=== PATIENT | male | born 1990 | race Caucasian/White ===

== ENCOUNTER 2019-12-29 17:55 | Emergency (ER) | payer OTHER ==
[2019-12-29 18:37] VITALS: BP 140/82; PULSE 110
== END 2019-12-29 19:45 | disposition left against medical advice (07) ==
LOC: MW.ED 17:55
DX: Z53.21 Procedure and treatment not carried out due to patient leaving prior to being seen by health care provider (principal)

== ENCOUNTER 2021-07-24 07:22 | Emergency (ER) | payer OTHER ==
[2021-07-24] MEDS ORDERED: Acetaminophen 500 MG Tab PO ONE (07:51)
[2021-07-24] MEDS ORDERED: Ibuprofen 600 MG Tab PO ONE (07:51)
[2021-07-24] MEDS ORDERED: Ondansetron 4 MG Tab.DIS PO ONE ×2 (07:51→09:34)
--- NOTE | 2021-07-24 07:58 | EDM.PDOC ---
ED HPI GENERAL MEDICAL PROBLEM - General Chief Complaint: Respiratory Problem Stated Complaint: COVID SYSTOMS Time Seen by Provider: 07/24/21 07:24 Source of Information: Reports: Patient History Limitations: Reports: No Limitations - History of Present Illness INITIAL COMMENTS - FREE TEXT/NARRATIVE: 30-year-old male no relevant past medical history presents for [id number] s ymptoms. Patient notes that for roughly the last week and a half he has noted nonproductive cough, chest tightness, shortness of breath, abdominal pain, nausea, vomiting, diarrhea, body aches, fever, loss of taste and smell. He denies sore throat. He notes that his vomiting got worse today and he has vomited roughly 6 times. He notes feeling very fatigued with a lack of energy. 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 He notes that he was around his [id number] just before the symptoms started and that she subsequently tested positive and is currently in quarantine. He notes that he lives with his elderly father with multiple health problems and that he has wanting to know if he is positive so that he may avoid passing along to his father. Abd/Body Aches Pain Score (Numeric/FACES): 8 - Related Data Allergies Allergy/AdvReac Type Severity Reaction Status Date / Time Latex, Natural Rubber Allergy Hives Verified 07/24/21 07:37 Penicillins Allergy Irritabilit Verified 12/29/19 18:33 y Home Meds: Home Meds Dextroamphetamine/Amphetamine [Adderall] 40 mg PO DAILY 12/29/19 [History] Medical Marijuana 1 dose INH ASDIRECTED 12/29/19 [History] Ondansetron [Zofran Odt] 8 mg PO Q6H PRN #12 tab.rapdis 07/24/21 [Rx] Past Medical History - Past Health History Medical/Surgical History: Denies Medical/Surgical History HEENT History: Reports: None Cardiovascular History: Reports: None Respiratory History: Reports: None Gastrointestinal History: Reports: Cholelithiasis Genitourinary History: Reports: None Musculoskeletal History: Reports: None Neurological History: Reports: None Psychiatric History: Reports: ADHD Endocrine/Metabolic History: Reports: None Hematologic History: Reports: None Immunologic History: Reports: None Oncologic (Cancer) History: Reports: None Dermatologic History: Reports: None - Infectious Disease History Infectious Disease History: Reports: None - Past Surgical History Head Surgeries/Procedures: Reports: None HEENT Surgical History: Reports: Oral Surgery GI Surgical History: Reports: Appendectomy, Cholecystectomy Social & Family History - Family History Family Medical History: No Pertinent Family History - Tobacco Use Tobacco Use Status *Q: Current Every Day Tobacco User Years of Tobacco use: 10 Packs/Tins Daily: 0.5 - Caffeine Use Caffeine Use: Reports: Soda - Recreational Drug Use Recreational Drug Use: Yes Drug Use in Last 12 Months: Yes Recreational Drug Type: Reports: Marijuana/Hashish Recreational Drug Use Frequency: Daily ED ROS GENERAL - Review of Systems Review Of Systems: Comprehensive ROS is negative, except as noted in HPI. ED EXAM, GENERAL - Physical Exam Exam: See Below Exam Limited By: No Limitations General Appearance: Alert, WD/WN, No Apparent Distress Ears: Hearing Grossly Normal Throat/Mouth: Normal Oropharynx, Normal Voice, No Airway Compromise Head: Atraumatic, Normocephalic Neck: Normal Inspection Respiratory/Chest: No Respiratory Distress, Lungs Clear, Normal Breath Sounds, No Accessory Muscle Use Cardiovascular: Normal Peripheral Pulses, Tachycardia GI/Abdominal: Soft, Non-Tender Extremities: Normal Inspection Neurological: Alert, Normal Cognition, Normal Gait Psychiatric: Normal Affect, Normal Mood Skin Exam: Warm, Dry, Intact, Normal Color Course - Vital Signs Last Recorded V/S: Last Vital Signs Temp 97.3 F 07/24/21 07:34 Pulse 96 07/24/21 07:34 Resp 16 07/24/21 07:34 BP 124/78 07/24/21 07:34 Pulse Ox 98 07/24/21 07:34 - Orders/Labs/Meds Labs: Laboratory Tests 07/24/21 Range/Units 07:54 SARS-CoV-2 RNA (SAMUEL) NEGATIVE (NEGATIVE) Meds: Medications Discontinued Medications Generic Name Dose Route Start Last Admin Trade Name Freq PRN Reason Stop Dose Admin Acetaminophen 1,000 mg 07/24/21 07:51 07/24/21 07:59 Acetaminophen 500 Mg Tab PO 07/24/21 07:52 1,000 mg ONETIME ONE Administration Ibuprofen 600 mg 07/24/21 07:51 07/24/21 07:59 Ibuprofen 600 Mg Tab PO 07/24/21 07:52 600 mg ONETIME ONE Administration Ondansetron HCl 4 mg 07/24/21 07:51 07/24/21 07:59 Ondansetron 4 Mg Tab.Dis PO 07/24/21 07:52 4 mg ONETIME ONE Administration Ondansetron HCl 4 mg 07/24/21 09:30 07/24/21 09:35 Ondansetron 4 Mg/2 Ml Sdv IVPUSH 07/24/21 09:31 Not Given ONETIME ONE Ondansetron HCl 4 mg 07/24/21 09:34 07/24/21 09:36 Ondansetron 4 Mg Tab.Dis PO 07/24/21 09:35 4 mg ONETIME ONE Administration Ondansetron HCl Confirm 07/24/21 09:35 07/24/21 09:38 Ondansetron 4 Mg Tab.Dis Administered 07/24/21 09:36 Not Given Dose 4 mg .ROUTE .[facility] ONE - Re-Assessments/Exams Free Text/Narrative Re-Assessment/Exam: 07/24/21 07:58 Patient is well-appearing with symptoms suggestive of COVID-19. Will get a chest x-ray to ensure no COVID-19 pneumonia. Will get a Covid swab. Will give Motrin, Tylenol, Zofran for symptomatic relief. 07/24/21 09:55 Covid testing and chest x-ray are unremarkable. Patient is feeling better. Will discharge with a course of Zofran. Will explained to patient that negative test does not necessarily 100% rule out COVID-19. Departure - Departure Time of Disposition: 09:55 Disposition: Home, Self-Care 01 Condition: Good Clinical Impression: Viral illness Nausea & vomiting Qualifiers: Vomiting type: unspecified Vomiting Intractability: non-intractable Qualified Code(s): R11.2 - Nausea with vomiting, unspecified - Discharge Information Instructions: Viral Illness, Adult, Nausea and Vomiting, Adult Referrals: PCP,None [Primary Care Provider] - Forms: ED Department Discharge Additional Instructions: Your Covid test was negative. However this does not completely rule out Covid as the test does not 100% sensitive. I did send a nausea medication to her pharmacy that can help with your symptoms. The following information is given to patients seen in the emergency department who are being discharged to home. This information is to outline your options for follow-up care. We provide all patients seen in our emergency department with a follow-up referral. The need for follow-up, as well as the timing and circumstances, are variable depending upon the specifics of your emergency department visit. If you don't have a primary care physician on staff, we will provide you with a referral. We always advise you to contact your personal physician following an emergency department visit to inform them of the circumstance of the visit and for follow-up with them and/or the need for any referrals to a consulting specialist. The emergency department will also refer you to a specialist when appropriate. This referral assures that you have the opportunity for follow-up care with a specialist. All of these measure are taken in an effort to provide you with optimal care, which includes your follow-up. Under all circumstances we always encourage you to contact your private physician who remains a resource for coordinating your care. When calling for follow-up care, please make the office aware that this follow-up is from your recent emergency room visit. If for any reason you are refused follow-up, please contact the [facility] Emergency Department at and asked to speak to the emergency department charge nurse. Please follow up with your primary care physician. If you do not have a primary care physician, see below: [facility] [address] [place] [id number] [facility] [address] [place] [address] [facility] [address] [place] [id number] Sepsis Event Note (ED) - Evaluation Sepsis Screening Result: No Definite Risk - Focused Exam Vital Signs: Vital Signs Temp Pulse Resp BP Pulse Ox 07/24/21 07:34 97.3 F 96 16 124/78 98
--- NOTE | 2021-07-24 08:15 | CR ---
INDICATION: Cough and shortness of breath. TECHNIQUE: Chest 1 view COMPARISON: None FINDINGS: Cardiovascular and mediastinum: Heart size and vasculature are normal in caliber and appearance. Lungs and pleural spaces: Lungs are clear. No sign of infiltrate or mass. No sign of pleural effusion. No pneumothorax. Bones and soft tissues: No significant findings. IMPRESSION: Negative chest. No sign of pneumonia. Dictated by Julio Vang MD @ 07/24/2021 8:13:[address] Julio Vang @ Jul 24 2021 8:13AM
[2021-07-24] MEDS ORDERED: Ondansetron 4 MG/2 ML SDV IVPUSH ONE (09:30)
[2021-07-24] MEDS ORDERED: Ondansetron 4 MG Tab.DIS ONE (09:35)
[2021-07-24 10:07] VITALS: BP 138/83; PULSE 92
== END 2021-07-24 10:07 | disposition home or self-care (01) ==
LOC: MW.ED 07:22
DX: B34.9 Viral infection, unspecified (principal); R11.2 Nausea with vomiting, unspecified; Z88.0 Allergy status to penicillin; Z91.040 Latex allergy status; Z72.0 Tobacco use; Z20.822 Contact with and (suspected) exposure to COVID-19
CPT/HCPCS: 71045; 87635; 87804; 99284; A9270; U0002

== ENCOUNTER 2024-07-30 20:30 | Emergency (ER) | payer SELFPAY ==
[2024-07-30] MEDS: traMADol 50 MG Tab PO STA (22:23)
[2024-07-30] MEDS: Promethazine 25 MG Tab PO STA (22:23)
[2024-07-30 23:41] VITALS: BP 126/84; PULSE 80
== END 2024-07-30 22:26 | disposition home or self-care (01) ==
LOC: MW.ED 20:30
DX: F11.93 Opioid use, unspecified with withdrawal (principal); I10 Essential (primary) hypertension; Z88.0 Allergy status to penicillin; Z91.040 Latex allergy status; Z79.899 Other long term (current) drug therapy; Z90.49 Acquired absence of other specified parts of digestive tract; Z75.8 Other problems related to medical facilities and other health care
CPT/HCPCS: 99283; A9270

== ENCOUNTER 2024-08-10 11:04 | Emergency (ER) | payer SELFPAY ==
[2024-08-10 11:40] VITALS: BP 138/103; PULSE 98
== END 2024-08-10 12:22 | disposition home or self-care (01) ==
LOC: MW.ED 11:04
DX: M25.561 Pain in right knee (principal); G89.29 Other chronic pain; I10 Essential (primary) hypertension; Z86.16 Personal history of COVID-19; Z90.49 Acquired absence of other specified parts of digestive tract; F17.210 Nicotine dependence, cigarettes, uncomplicated; Z79.899 Other long term (current) drug therapy; Z88.0 Allergy status to penicillin; Z91.040 Latex allergy status; Z75.8 Other problems related to medical facilities and other health care
CPT/HCPCS: 73562-26-RT; 73562-RT; 99283

== ENCOUNTER 2024-10-03 08:44 | Emergency (ER) | payer SELFPAY ==
[2024-10-03] MEDS: Albuterol/Ipratropium 3.0-0.5 MG/3 ML Neb Soln NEB ONE (09:25)
[2024-10-03] MEDS: methylPREDNISolone Sodium Succinate 125 MG/2 ML SDV IVPUSH ONE (09:25)
[2024-10-03] MEDS: Sodium Chloride 0.9% 1,000 ML IV ONE (09:25)
[2024-10-03 09:35] LABS: BASOPHILS ABSOLUTE AUTO 0.03 K/uL (0.00-0.20); BASOPHILS PERCENT AUTO 0.3 % (0.0-1.0); EOSINOPHILS ABSOLUTE AUTO 0.09 K/uL (0.00-0.45); HEMATOCRIT 44.8 % (42.0-52.0); HEMOGLOBIN 16.3 g/dL (14.0-18.0); IMMATURE GRAN ABSOLUTE AUTO 0.03 K/uL (0.00-0.05); IMMATURE GRAN PERCENT AUTO 0.3 % (0.0-0.4); LYMPHOCYTES ABSOLUTE AUTO 1.07 K/uL (1.00-4.80); LYMPHOCYTES PERCENT AUTO 11.7 % (24.0-44.0); MEAN CORPUSCULAR HEMOGLOBIN 33.5 pg (28.0-32.0); MEAN CORPUSCULAR HGB CONC 36.4 g/dL (32.0-36.0); MEAN PLATELET VOLUME 9.2 fL (9.4-12.4); MONOCYTES ABSOLUTE AUTO 0.97 K/uL (0.00-0.80); MONOCYTES PERCENT AUTO 10.6 % (0.0-8.0); NEUTROPHILS ABSOLUTE AUTO 6.99 K/uL (1.80-7.70); NEUTROPHILS PERCENT AUTO 76.1 % (41.0-71.0); PLATELET COUNT,PLT 355 K/uL (150-400); RED BLOOD CELL COUNT 4.87 M/uL (4.52-5.90); WHITE BLOOD CELL COUNT,WBC 9.18 K/uL (3.9-11.3)
[2024-10-03 10:02] LABS: A/G RATIO 0.9 (0.9-1.6); ALBUMIN 3.5 g/dL (3.4-5.0); BILIRUBIN TOTAL 1.3 mg/dL (0.2-1.0); CALCIUM 8.9 mg/dL (8.5-10.1); CARBON DIOXIDE,CO2 29.5 mmol/L (21.0-32.0); CREATININE 1.1 mg/dL (0.8-1.3); EST CRCL DRUG DOSING (CG) 97.7 mL/min; PROTEIN TOTAL,TP 7.4 g/dL (6.4-8.2)
[2024-10-03 10:06] LABS: LACTIC ACID 0.9 mmol/L (0.4-2.0)
[2024-10-03] MEDS: Potassium Chloride 20 MEQ Tab.ER PO ONE (10:25)
[2024-10-03 11:08] VITALS: BP 128/86; PULSE 107
== END 2024-10-03 11:07 | disposition home or self-care (01) ==
LOC: MW.ED 08:44
DX: J06.9 Acute upper respiratory infection, unspecified (principal); E87.6 Hypokalemia; I10 Essential (primary) hypertension; Z90.49 Acquired absence of other specified parts of digestive tract; F17.210 Nicotine dependence, cigarettes, uncomplicated; Z79.899 Other long term (current) drug therapy; Z91.040 Latex allergy status; Z88.0 Allergy status to penicillin; Z75.8 Other problems related to medical facilities and other health care
CPT/HCPCS: 36415; 71045; 80053; 83605; 83735; 85025; 87428; 93005; 96361; 96374; 99285; A9270; J2919; J7030; J7620-GY